=== PATIENT | male | born 1960 | race Hispanic/Latino ===

== ENCOUNTER 2018-10-14 16:06 | Outpatient (CLI) | payer MEDICARE ==
--- NOTE | 2018-10-14 17:00 | RAD ---
CHEST 2 VIEWS: Date: 10/14/18 HISTORY: Cough and shortness of breath. COMPARISON: None. FINDINGS: Normal cardiac silhouette. Pulmonary vessels and hilum are normal. Costophrenic angles are clear. Obs curation and elevation of the medial right hemidiaphragm. Adequate aeration of left lung. No pneumoth orax or osseous abnormality. IMPRESSION: Obscuration and elevation of the medial right hemidiaphragm, which may represent atelectasis. Possibl e superimposed pneumonia cannot be excluded. There is no pneumothorax or osseous abnormality. No acut e cardiopulmonary process. POS: [facility]
== END 2018-10-14 16:07 | disposition home or self-care (01) ==
LOC: NAV RAD 16:06
PROVIDERS: ATTEND Nurse Practitioner Family
DX: R06.02 Shortness of breath (principal); J98.6 Disorders of diaphragm
CPT/HCPCS: 71046

== ENCOUNTER 2018-11-13 13:57 | Outpatient (CLI) | payer MEDICARE ==
--- NOTE | 2018-11-13 14:31 | RAD ---
PA AND LATERAL CHEST: History: Follow up pneumonia. Comparison: 10-14-18 FINDINGS: Heart size is within normal limits. Slight elevation of the right hemidiaphragm is noted. Slight obsc uration along the medial border of the right hemidiaphragm is a stable finding. Given the stability, it may just be related to an epicardial fat pad. IMPRESSION: Stable exam. POS: [facility]
== END 2018-11-13 13:58 | disposition home or self-care (01) ==
LOC: NAV RAD 13:57
PROVIDERS: ATTEND Nurse Practitioner Family
DX: J18.9 Pneumonia, unspecified organism (principal)
CPT/HCPCS: 71046

== ENCOUNTER 2019-07-23 18:52 | Emergency (ER) | payer MEDICARE, OTHER ==
--- NOTE | 2019-07-23 19:21 | RAD ---
Exam: Chest one view left RIBS 2 views: HISTORY: Injury from a fall COMPARISON: 11/13/2018 FINDINGS: No significant acute intrathoracic disease. No pleural effusion or pneumothorax. No convincing eviden ce for acute left rib fracture. IMPRESSION: No convincing evidence for acute left rib fracture. Stable chest.
[2019-07-23] MEDS ORDERED: Acetaminophen 500 MG TAB ONE (20:07)
[2019-07-23] MEDS ORDERED: Ibuprofen 200 MG TAB ONE (20:07)
== END 2019-07-23 20:30 | disposition home or self-care (01) ==
LOC: NAV ERS 18:52
DX: S20.212A Contusion of left front wall of thorax, initial encounter (principal); E11.9 Type 2 diabetes mellitus without complications; E78.5 Hyperlipidemia, unspecified; I10 Essential (primary) hypertension; W01.198A Fall on same level from slipping, tripping and stumbling with subsequent striking against other object, initial encounter

== ENCOUNTER 2019-08-14 16:54 | Outpatient (CLI) | payer MEDICARE, OTHER ==
--- NOTE | 2019-08-14 17:16 | RAD ---
EXAM: XR Ribs Lt>=2 View STANDARD PROVIDED CLINICAL HISTORY: Pain status post injury COMPARISON: None FINDINGS: Nondisplaced fractures involving the left anterior-lateral sixth, seventh and eighth ribs are demonst rated. No evidence for pleural fluid or pneumothorax. IMPRESSION: As above.
== END 2019-08-14 16:55 | disposition home or self-care (01) ==
LOC: NAV RAD 16:54
PROVIDERS: ATTEND Family Medicine
DX: S20.212D Contusion of left front wall of thorax, subsequent encounter (principal); S22.42XA Multiple fractures of ribs, left side, initial encounter for closed fracture